=== PATIENT | female | born 1945 | race Caucasian/White ===

== ENCOUNTER 2020-07-02 11:12 | Inpatient (IN) | payer MEDICARE, OTHER ==
[2020-07-02] MEDS ORDERED: Lorazepam 2 MG/ML VIAL ONE (11:53)
[2020-07-02] MEDS ORDERED: Ondansetron PF 4 MG/2 ML Vial ONE (11:57)
[2020-07-02 12:16] LABS: #Eosinphils 0.1 10x3/uL (0.0-0.5); #Monocytes 0.3 10x3/uL (0.0-1.1); #Neutrophils 4.6 10x3/uL (1.5-8.4); %Basophils 0.5 % (0.0-2.0); %Eosinophils 1.7 % (0.0-6.0); %Lymphocytes 12.5 % (18.0-47.0); %Monocytes 5.1 % (0.0-10.0); %Neutrophils 79.9 % (40.0-75.0); Hemoglobin 14.7 g/dL (12.0-15.5); Mean Corpuscular HGB CONC 33.2 g/dL (32.0-36.0); Mean Corpuscular Hemoglobin 31.6 pg (27.0-33.0); Mean Corpuscular Volume 95.3 fl (81.6-98.3); Mean Platelet Volume 9.6 fl (7.4-10.4); Platelet Count 176 10x3/uL (150-450); RBC Distribution Width 13.3 % (11.5-14.5); Red Blood Cell (RBC) Count 4.65 10x6/uL (3.90-5.03); White Blood Cell (WBC) Count 5.7 10x3/uL (3.5-10.5)
[2020-07-02 12:30] LABS: ALT (SGPT) 12 U/L (8-55); AST (SGOT) 16 U/L (5-34); Albumin 4.1 g/dL (3.4-4.8); Alkaline Phosphatase 82 U/L (40-110); Anion Gap 13 mmol/L (10-20); BUN (Urea Nitrogen) 17 mg/dL (9.8-20.1); Bilirubin, Total 0.4 mg/dL (0.2-1.2); Calc. Creatinine Clearance 0 mL/min (70-130); Calcium 9.3 mg/dL (7.8-10.44); Carbon Dioxide 27 mmol/L (23-31); Chloride 106 mmol/L (98-107); Globulin 2.4 g/dL (2.4-3.5); Glucose 100 mg/dL (83-110); PTT 27.9 sec (22.0-33.0); Potassium 4.5 mmol/L (3.5-5.1); Protein, Total 6.5 g/dL (5.8-8.1); Prothrombin Time 10.5 sec (9.5-12.1); Sodium 141 mmol/L (136-145)
[2020-07-02] MEDS ORDERED: Lorazepam 2 MG/ML VIAL SLOW IVP PRN (14:09)
[2020-07-02] MEDS ORDERED: Acetaminophen 325 MG TAB PO PRN (14:12)
[2020-07-02] MEDS ORDERED: Ondansetron PF 4 MG/2 ML Vial IVP PRN (14:12)
[2020-07-02 16:49] VITALS: BMI 28.5
[2020-07-02] MEDS: Famotidine/PF 20 mg/2ml Vial SLOW IVP SCH (20:18)
[2020-07-02] MEDS: levETIRAcetam 500 MG TAB PO SCH (20:18)
[2020-07-02] MEDS: Atenolol 25 MG TAB PO SCH (20:19)
[2020-07-03 08:26] LABS: Anion Gap 12 mmol/L (10-20); BUN (Urea Nitrogen) 15 mg/dL (9.8-20.1); Calc. Creatinine Clearance 86 mL/min (70-130); Carbon Dioxide 27 mmol/L (23-31); Chloride 109 mmol/L (98-107); Glucose 92 mg/dL (83-110); Magnesium 2.2 mg/dL (1.6-2.6); Potassium 5.3 mmol/L (3.5-5.1); Sodium 143 mmol/L (136-145)
[2020-07-03] MEDS: Atenolol 25 MG TAB PO SCH (08:36)
[2020-07-03] MEDS: levETIRAcetam 500 MG TAB PO SCH (08:36)
[2020-07-03] MEDS: Famotidine/PF 20 mg/2ml Vial SLOW IVP SCH (08:37)
[2020-07-03 08:41] LABS: #Eosinphils 0.1 10x3/uL (0.0-0.5); #Monocytes 0.4 10x3/uL (0.0-1.1); #Neutrophils 3.4 10x3/uL (1.5-8.4); %Basophils 0.8 % (0.0-2.0); %Lymphocytes 21.8 % (18.0-47.0); %Monocytes 7.2 % (0.0-10.0); Hemoglobin 12.7 g/dL (12.0-15.5); Mean Corpuscular HGB CONC 31.9 g/dL (32.0-36.0); Mean Corpuscular Volume 97.1 fl (81.6-98.3); Mean Platelet Volume 9.9 fl (7.4-10.4); Platelet Count 157 10x3/uL (150-450); RBC Distribution Width 13.4 % (11.5-14.5)
[2020-07-03] MEDS ORDERED: Atorvastatin Calcium 40 MG TAB PO SCH (09:00)
[2020-07-03] MEDS ORDERED: Cholecalciferol 1,000 UNITS (25 MCG) TAB PO SCH (09:00)
[2020-07-03] MEDS ORDERED: Losartan Potassium 50 MG TAB PO SCH (09:00)
[2020-07-03] MEDS ORDERED: Aspirin 81 mg Enteric Coated Tablet PO SCH (09:00)
[2020-07-03 13:02] VITALS: BP 125/60; TEMP 97.2
[2020-07-03 13:15] LABS: SARS-CoV-2 PCR by NAA Not Detected (NotDetected)
[2020-07-03 13:37] LABS: Anion Gap 12 mmol/L (10-20); BUN (Urea Nitrogen) 15 mg/dL (9.8-20.1); Calc. Creatinine Clearance 82 mL/min (70-130); Carbon Dioxide 29 mmol/L (23-31); Chloride 104 mmol/L (98-107); Glucose 100 mg/dL (83-110); Potassium 4.3 mmol/L (3.5-5.1); Sodium 141 mmol/L (136-145)
== END 2020-07-03 15:46 | disposition home or self-care (01) | DRG 101 ==
LOC: CSHERS 11:12 → CSHTELE 16:10
PROVIDERS: ADMIT Family Medicine; ATTEND Family Medicine
DX: G40.919 Epilepsy, unspecified, intractable, without status epilepticus (principal); R47.01 Aphasia; E78.5 Hyperlipidemia, unspecified; Z20.822 Contact with and (suspected) exposure to COVID-19; I10 Essential (primary) hypertension; Z86.73 Personal history of transient ischemic attack (TIA), and cerebral infarction without residual deficits; Z88.5 Allergy status to narcotic agent; Z79.82 Long term (current) use of aspirin; Z79.899 Other long term (current) drug therapy; Z90.710 Acquired absence of both cervix and uterus
CPT/HCPCS: 36416; 70450; 71045; 80048; 80053; 80185; 83735; 84443; 84484; 85025; 85610; 85730; 87635; 93005; 94760; 96374; J2060; J2405; S0028; U0003; U0005

== ENCOUNTER 2020-07-06 10:11 | Outpatient (CLI) | payer MEDICARE, OTHER | END 2020-07-06 10:12 | disposition home or self-care (01) | LOC: CSHCT 10:11 | PROVIDERS: ATTEND Otolaryngology | DX: J38.00 Paralysis of vocal cords and larynx, unspecified (principal); J98.4 Other disorders of lung; Q76.1 Klippel-Feil syndrome; I26.99 Other pulmonary embolism without acute cor pulmonale; I25.84 Coronary atherosclerosis due to calcified coronary lesion | CPT/HCPCS: 70491; 71260 ==

== ENCOUNTER 2020-08-29 08:53 | Outpatient (CLI) | payer MEDICARE, OTHER | END 2020-08-29 08:54 | disposition home or self-care (01) | LOC: CSHCT 08:53 | PROVIDERS: ATTEND Internal Medicine Critical Care Medicine | DX: I26.99 Other pulmonary embolism without acute cor pulmonale (principal); J98.4 Other disorders of lung; R91.1 Solitary pulmonary nodule | CPT/HCPCS: 71250 ==

== ENCOUNTER 2022-11-08 13:25 | Outpatient (CLI) | payer MEDICARE, OTHER | END 2022-11-08 13:26 | disposition home or self-care (01) | LOC: CSHMAMMO 13:25 | PROVIDERS: ATTEND Internal Medicine | DX: Z12.31 Encounter for screening mammogram for malignant neoplasm of breast (principal); Z80.3 Family history of malignant neoplasm of breast | CPT/HCPCS: 77063; 77067 ==